=== PATIENT | female | born 1950 | race African-American/Black ===

== ENCOUNTER 2017-01-15 09:30 | Inpatient (IN) | payer OTHER ==
[~2017-01-15] VITALS: Ht 170.2 cm; Wt 73.8 kg
[2017-01-15] VITALS (11 sets, daily range): BP systolic 82–120; BP diastolic 50–85
[~2017-01-15 09:30] MED LIST: CYCLOBENZAPRINE10 MG PO; DAILY VALUE1 EACH PO; EXCEDRIN EXT1 TABLET PO; HYDROCODON-ACE1 EAC7 PO; LEVAQUIN500 MG PO; LOPRESSOR50 MG PO; LOSARTAN-HCTZ1 EACH PO; NAPROXEN500 MG PO; PERCOCET 5/31 TABLET PO; ST. JOSEPH ASPI81 MG PO; TRAMADOL HCL50 MG PO; TYLENOL WITH C1 EACH PO; ULTRAM50 MG PO; VENTOLIN HFA18 GM IH; VITAMIN B-12250 MCG PO; ZOLOFT100 MG PO; ZOLOFT50 MG PO; ZOLPIDEM TARTRAT5 MG PO; [UNRECOGNIZED DRUG - REMARK]; [UNRECOGNIZED DRUG - REMARK] IJ
[2017-01-15 11:43] LABS: INTER. NORMALIZED RATIO 1.2; PROTHROMBIN TIME 13.5 SEC (10.2-12.9)
[2017-01-15 11:45] LABS: PTT 31.4 SEC (25-37)
[2017-01-15 11:48] LABS: EOSINOPHIL (%) 0.2 % (0-5); HEMATOCRIT 29.2 % (36.0-46.0); IMMATURE GRANULOCYTE (%) 0.5 % (0.0-0.7); IMMATURE GRANULOCYTE COUNT 0.1 K/uL; INSTRUMENT ABS NEUTROPHIL CT 9.3 K/uL; LYMPHOCYTE COUNT 1.1 K/uL (1.0-2.8); MCHC 31.5 G/DL (30.0-36.0); MCV 60.2 FL (83-99); MEAN PLAT.VOLUME 9.5 uM^3 (9.5-12.4); MONOCYTE (%) 9.6 % (3-12); MONOCYTE COUNT 1.1 K/uL (0-0.8); NEUTROPHIL (%) 80.3 % (45-76); NEUTROPHIL COUNT 9.3 K/uL (1.8-6.4); PLATELET COUNT 303 K/uL (156-360); RBC DIS.WIDTH-CV 22.2 % (11.8-14.6); RBC DIS.WIDTH-SD 45.8 % (39-53); RED BLOOD COUNT 4.85 M/uL (3.80-5.20); WHITE BLOOD COUNT 11.6 K/uL (4.1-10.2)
[2017-01-15 11:50] LABS: CHLORIDE 105 mEq/L (99-109); POTASSIUM 3.4 mEq/L (3.7-5.4); SODIUM 140 mEq/L (136-147)
[2017-01-15 11:52] LABS: GLUCOSE 106 mg/dL (70-99)
[2017-01-15 11:54] LABS: ANION GAP 13 MEQ/L (2-14); TOTAL BILIRUBIN 0.4 mg/dL (0.0-1.0)
[2017-01-15 11:56] LABS: ALKALINE PHOSPHATASE 132 IU/L (3-129); GFR ESTIMATE (CALCULATED) > 59 mL/min/
[2017-01-15 11:57] LABS: UREA NITROGEN (BUN) 16 mg/dL (9-23)
[2017-01-15 11:58] LABS: TROP-I INTERPRETATION NEGATIVE; TROPONIN-I < 0.01 ng/mL (0.0-0.30)
[2017-01-15 11:59] LABS: LIPASE 20 U/L (1.0-51.0)
[2017-01-15 13:14] LABS: ADD MIUA? YES; BILIRUBIN NEGATIVE; BLOOD SMALL; COLOR YELLOW ((YELLOW)); GLUCOSE (STRIP) NEGATIVE; KETONES NEGATIVE; LEUKOCYTES NEGATIVE; NITRITE NEGATIVE; PROTEIN (STRIP) 30; SPECIFIC GRAVITY 1.014 (1.000-1.030); UROBILINOGEN 0.2 MG/DL (0.2-1.0)
[2017-01-15 13:19] LABS: BACTERIA NONE SEEN /HPF; EPITHELIAL CELLS RARE /HPF; MUCUS TRACE /LPF; RED BLOOD CELLS 0-5 /HPF (0-5); WHITE BLOOD CELLS 0-5 /HPF (0-5)
[2017-01-15 14:51] LABS: RETIC HGB EQUIVALENT 21.6 (28-36); RETICULOCYTE COUNT 0.9 % (0.5-1.8)
[2017-01-15] MEDS ORDERED: GABAPENTIN100 MG PO (15:21)
[2017-01-15] MEDS ORDERED: MODAFINIL200 MG PO (15:22)
[2017-01-15] MEDS ORDERED: ATORVASTATIN CA40 MG PO (15:22)
[2017-01-15] MEDS ORDERED: SPIRIVA RESPIMAT4 GM IH (15:22)
[2017-01-15] MEDS ORDERED: TIZANIDINE HCL2 MG PO (15:22)
[2017-01-15] MEDS ORDERED: SYMBICORT60 INHALAT IH (15:23)
[2017-01-15] MEDS ORDERED: RISPERIDONE0.25 MG PO (15:23)
[2017-01-15] MEDS ORDERED: FLONASE16 G1 BOTH NARES (15:23)
[2017-01-15] MEDS ORDERED: TRAMADOL HCL50 MG PO (15:23)
[2017-01-15] MEDS ORDERED: IBUPROFEN800 MG PO (15:24)
[2017-01-15] MEDS ORDERED: CYTOTEC200 MCG PO (15:24)
[2017-01-15 16:02] LABS: IRON < 10 MCG/DL (35-150)
[2017-01-15 18:46] LABS: TROP-I INTERPRETATION NEGATIVE; TROPONIN-I < 0.01 ng/mL (0.0-0.30)
[2017-01-16] VITALS (8 sets, daily range): BP systolic 95–136; BP diastolic 52–76
[2017-01-16 01:59] LABS: TROP-I INTERPRETATION NEGATIVE; TROPONIN-I < 0.01 ng/mL (0.0-0.30)
[2017-01-16 07:14] LABS: ANION GAP 8 MEQ/L (2-14); CHLORIDE 110 MEQ/L (99-109); GFR ESTIMATE (CALCULATED) > 59 mL/min/; GLUCOSE 102 mg/dL (70-99); POTASSIUM 3.5 MEQ/L (3.7-5.4); SAMPLE HEMOLYSIS CHECK 0; SAMPLE ICTERIC CHECK 0; SAMPLE LIPEMIA CHECK 0; SODIUM 141 MEQ/L (136-147); UREA NITROGEN (BUN) 10 mg/dL (9-23)
[2017-01-16 07:19] LABS: EOSINOPHIL (%) 0.8 % (0-5); EOSINOPHIL COUNT 0.1 K/uL (0-0.3); HEMATOCRIT 29.5 % (36.0-46.0); IMMATURE GRANULOCYTE (%) 0.3 % (0.0-0.7); INSTRUMENT ABS NEUTROPHIL CT 6.7 K/uL; LYMPHOCYTE COUNT 1.1 K/uL (1.0-2.8); MCH 21.4 PG (29.0-34.0); MCHC 32.9 G/DL (30.0-36.0); MEAN PLAT.VOLUME 9.6 uM^3 (9.5-12.4); MONOCYTE (%) 11.3 % (3-12); NEUTROPHIL (%) 75.3 % (45-76); NEUTROPHIL COUNT 6.7 K/uL (1.8-6.4); PLATELET COUNT 267 K/uL (156-360); RED BLOOD COUNT 4.53 M/uL (3.80-5.20); WHITE BLOOD COUNT 8.9 K/uL (4.1-10.2)
[2017-01-16 07:39] LABS: MCV 65.1 FL (83-99)
[2017-01-16 07:42] LABS: INTERNAL CONTROL VALID? YES
[2017-01-16 14:05] LABS: FERRITIN 39 NG/ML (10-291)
[2017-01-17 03:40] VITALS: BP 111/63
[2017-01-17 06:33] LABS: EOSINOPHIL (%) 0 % (0-5); HEMATOCRIT 31.3 % (36.0-46.0); IMMATURE GRANULOCYTE COUNT 0.1 K/uL; INSTRUMENT ABS NEUTROPHIL CT 7.5 K/uL; LYMPHOCYTE COUNT 0.5 K/uL (1.0-2.8); MCHC 32.3 G/DL (30.0-36.0); MCV 65.2 FL (83-99); MEAN PLAT.VOLUME 9.1 uM^3 (9.5-12.4); MONOCYTE (%) 1.5 % (3-12); MONOCYTE COUNT 0.1 K/uL (0-0.8); NEUTROPHIL (%) 91.8 % (45-76); NEUTROPHIL COUNT 7.5 K/uL (1.8-6.4); PLATELET COUNT 293 K/uL (156-360); RBC DIS.WIDTH-CV 26.1 % (11.8-14.6); RBC DIS.WIDTH-SD 59.5 % (39-53); WHITE BLOOD COUNT 8.2 K/uL (4.1-10.2)
[2017-01-17 06:35] LABS: ANION GAP 13 MEQ/L (2-14); CHLORIDE 110 MEQ/L (99-109); GFR ESTIMATE (CALCULATED) > 59 mL/min/; POTASSIUM 4.2 MEQ/L (3.7-5.4); SAMPLE HEMOLYSIS CHECK 0; SAMPLE ICTERIC CHECK 0; SAMPLE LIPEMIA CHECK 0; SODIUM 143 MEQ/L (136-147); UREA NITROGEN (BUN) 7 mg/dL (9-23)
[2017-01-17 06:42] LABS: GLUCOSE 154 mg/dL (70-99)
[2017-01-17 07:39] VITALS: BP 117/62
[2017-01-17 15:51] VITALS: BP 130/84
[2017-01-17 19:58] VITALS: BP 111/65
[2017-01-17 23:55] VITALS: BP 105/64
[2017-01-18 03:51] VITALS: BP 119/70
[2017-01-18 06:41] LABS: EOSINOPHIL (%) 0 % (0-5); HEMATOCRIT 28.3 % (36.0-46.0); IMMATURE GRANULOCYTE (%) 1.2 % (0.0-0.7); IMMATURE GRANULOCYTE COUNT 0.1 K/uL; INSTRUMENT ABS NEUTROPHIL CT 4.8 K/uL; LYMPHOCYTE COUNT 0.9 K/uL (1.0-2.8); MCH 21.1 PG (29.0-34.0); MCHC 32.5 G/DL (30.0-36.0); MCV 64.8 FL (83-99); MEAN PLAT.VOLUME 9.2 uM^3 (9.5-12.4); MONOCYTE (%) 5.4 % (3-12); MONOCYTE COUNT 0.3 K/uL (0-0.8); NEUTROPHIL (%) 79.3 % (45-76); NEUTROPHIL COUNT 4.8 K/uL (1.8-6.4); PLATELET COUNT 295 K/uL (156-360); RBC DIS.WIDTH-CV 26.1 % (11.8-14.6); RBC DIS.WIDTH-SD 59.3 % (39-53); RED BLOOD COUNT 4.37 M/uL (3.80-5.20); WHITE BLOOD COUNT 6.1 K/uL (4.1-10.2)
[2017-01-18 06:54] LABS: ANION GAP 10 MEQ/L (2-14); CHLORIDE 110 MEQ/L (99-109); GFR ESTIMATE (CALCULATED) > 59 mL/min/; GLUCOSE 138 mg/dL (70-99); MAGNESIUM 2.1 mg/dl (1.3-2.7); POTASSIUM 4.6 MEQ/L (3.7-5.4); SAMPLE HEMOLYSIS CHECK 0; SAMPLE ICTERIC CHECK 0; SAMPLE LIPEMIA CHECK 0; SODIUM 143 MEQ/L (136-147); UREA NITROGEN (BUN) 15 mg/dL (9-23)
[2017-01-18 08:04] VITALS: BP 136/82
[2017-01-18 11:52] VITALS: BP 112/62
[2017-01-18 16:00] VITALS: BP 110/67
[2017-01-18 18:59] LABS: INTERNAL CONTROL VALID? YES
[2017-01-18 19:28] VITALS: BP 124/72
[2017-01-19] VITALS (7 sets, daily range): BP systolic 109–141; BP diastolic 65–81
[2017-01-20 03:27] VITALS: BP 123/72
[2017-01-20 07:55] VITALS: BP 121/72
[2017-01-20 12:04] VITALS: BP 124/74
[2017-01-20 15:51] VITALS: BP 119/68; BP 158/76
[2017-01-20 23:48] VITALS: BP 98/58
[2017-01-21 03:49] VITALS: BP 131/58
[2017-01-21 07:50] VITALS: BP 120/61
[2017-01-21] MEDS ORDERED: AMOX TR-K CLV1 EAC4 PO (08:01)
[2017-01-21] MEDS ORDERED: DOCUSATE SODIU100 MG PO (08:01)
[2017-01-21] MEDS ORDERED: FERROUS SULFAT325 MG PO (08:01)
[2017-01-21] MEDS ORDERED: PREDNISONE10 MG PO (08:01)
[2017-01-21] MEDS ORDERED: BUTALB-APAP-CA1 EACH PO (08:01)
== END 2017-01-21 10:21 | disposition home or self-care (01) | DRG 190 ==
LOC: EME 09:30 → EDOF 14:09 → 5SOUTH 14:09 → ENRESERV 14:28 → 2EASTP 16:06 → ENRESERV 01-16 06:26 → 5SOUTH 01-16 08:16
PROVIDERS: Hospitalist; Internal Medicine; Physician Assistant
DX: J44.0 Chronic obstructive pulmonary disease with (acute) lower respiratory infection (principal); J18.9 Pneumonia, unspecified organism; J96.01 Acute respiratory failure with hypoxia; J44.1 Chronic obstructive pulmonary disease with (acute) exacerbation; I10 Essential (primary) hypertension; D50.9 Iron deficiency anemia, unspecified; I71.2 Thoracic aortic aneurysm, without rupture; G43.909 Migraine, unspecified, not intractable, without status migrainosus; J61 Pneumoconiosis due to asbestos and other mineral fibers; E78.5 Hyperlipidemia, unspecified; G44.209 Tension-type headache, unspecified, not intractable; F17.210 Nicotine dependence, cigarettes, uncomplicated; F32.9 Major depressive disorder, single episode, unspecified; F41.9 Anxiety disorder, unspecified; I73.9 Peripheral vascular disease, unspecified; K29.70 Gastritis, unspecified, without bleeding; G89.29 Other chronic pain; K41.90 Unilateral femoral hernia, without obstruction or gangrene, not specified as recurrent; Z79.51 Long term (current) use of inhaled steroids; Z79.899 Other long term (current) drug therapy; Z86.79 Personal history of other diseases of the circulatory system; Z92.3 Personal history of irradiation
CPT/HCPCS: 70450; 71020; 71260; 74177; 80048; 80053; 81003; 82272; 82607; 82728; 82746; 83540; 83605; 83690; 83735; 84466; 84484; 85025; 85045; 85610; 85730; 86900; 86901; 86920; 87040; 87070; 87205; 87449; 93005; 94640; 94640 76; 94799; 97530 GO; 99202; 99281; 99285; J0456; J0696; J1650; J2405; J2920; J2930; J7030; J7050; J7512; P9016; S0028

== ENCOUNTER 2017-12-11 14:33 | Emergency (ER) | payer OTHER ==
[~2017-12-11] VITALS: Ht 172.7 cm; Wt 66.7 kg
[~2017-12-11 14:33] MED LIST changes: +AMOX TR-K CLV1 EAC4 PO; +ATORVASTATIN CA40 MG PO; +BUTALB-APAP-CA1 EACH PO; +CYTOTEC200 MCG PO; +DOCUSATE SODIU100 MG PO; +FERROUS SULFAT325 MG PO; +FLONASE16 G1 BOTH NARES; +GABAPENTIN100 MG PO; +IBUPROFEN800 MG PO; +MODAFINIL200 MG PO; +PREDNISONE10 MG PO; +RISPERIDONE0.25 MG PO; +SPIRIVA RESPIMAT4 GM IH; +SYMBICORT60 INHALAT IH; +TIZANIDINE HCL2 MG PO
[2017-12-11 16:04] LABS: ALBUMIN 4.1 g/dL (3.2-4.8); CHLORIDE 105 mEq/L (99-109); POTASSIUM 3.8 mEq/L (3.7-5.4); SODIUM 141 mEq/L (136-147)
[2017-12-11 16:06] LABS: GLUCOSE 103 mg/dL (70-99)
[2017-12-11 16:08] LABS: TOTAL BILIRUBIN 0.4 mg/dL (0.0-1.0)
[2017-12-11 16:10] LABS: ALKALINE PHOSPHATASE 90 IU/L (3-129); CREATININE 0.8 mg/dL (0.6-1.3); GFR ESTIMATE (CALCULATED) > 59 mL/min/
[2017-12-11 16:11] LABS: UREA NITROGEN (BUN) 16 mg/dL (9-23)
[2017-12-11 16:12] LABS: AST (GOT) 19 IU/L (2-34)
[2017-12-11 16:13] LABS: ALT (GPT) 21 IU/L (3-49); LIPASE 20 U/L (1.0-51.0)
[2017-12-11 16:14] LABS: HEMATOCRIT 37.3 % (36.0-46.0); HEMOGLOBIN 13.1 G/DL (11.9-15.5); MCH 26.8 PG (29.0-34.0); MCHC 35.1 G/DL (30.0-36.0); MCV 76.3 FL (83-99); PLATELET COUNT 294 K/uL (156-360); RBC DIS.WIDTH-SD 41.7 % (39-53); RED BLOOD COUNT 4.89 M/uL (3.80-5.20); WHITE BLOOD COUNT 5.8 K/uL (4.1-10.2)
[2017-12-11 16:32] LABS: APPEARANCE CLEAR ((CLEAR)); BILIRUBIN NEGATIVE; BLOOD NEGATIVE; COLOR YELLOW ((YELLOW)); GLUCOSE (STRIP) NEGATIVE; KETONES NEGATIVE; LEUKOCYTES NEGATIVE; NITRITE NEGATIVE; PROTEIN (STRIP) NEGATIVE; SPECIFIC GRAVITY 1.017 (1.000-1.030); UCUL ADDED? NO; UROBILINOGEN 0.2 MG/DL (0.2-1.0)
[2017-12-11] MEDS ORDERED: SKELAXIN800 MG PO (19:42)
[2017-12-11] MEDS ORDERED: LIDODERM 5% P1 PATCH TD (19:42)
[2017-12-11 19:52] VITALS: BP 137/69
== END 2017-12-11 19:53 | disposition home or self-care (01) ==
LOC: EME 14:33
DX: K41.90 Unilateral femoral hernia, without obstruction or gangrene, not specified as recurrent (principal); M54.5 Low back pain; G89.29 Other chronic pain; F32.9 Major depressive disorder, single episode, unspecified; I10 Essential (primary) hypertension; M79.7 Fibromyalgia; Z79.82 Long term (current) use of aspirin; Z87.891 Personal history of nicotine dependence
CPT/HCPCS: 74176; 80053; 81003; 83690; 85027; 99281; 99284